=== PATIENT | male | born 1990 | race Two or more races ===

== ENCOUNTER 2016-09-18 | Emergency (ER) | payer OTHER | END 2016-09-18 09:42 | disposition home or self-care (01) ==

== ENCOUNTER 2018-06-09 12:53 | Emergency (ER) | payer SELFPAY ==
--- NOTE | 2018-06-09 13:12 | ED Physician Documentation ---
PD HPI CHEST PAIN - Stated complaint Stated Complaint: CP/DIZZY - Chief complaint Chief Complaint: Cardiac - History obtained from History obtained from: Patient - History of Present Illness Timing - onset: Other (For the last week or so he has had episodic sharp left- sided nonradiating chest pain. It is worse after but not during workouts. There is no associated nausea or shortness of breath. He has had some dizziness with it, but no syncope. He has a remote history of mitral valve prolapse but no other heart conditions. No recent travel, no cough, no pedal edema or calf pain.) Review of Systems Constitutional: denies: Fever, Chills Cardiac: denies: Palpitations Respiratory: denies: Dyspnea, Cough GI: denies: Abdominal Pain, Nausea, Vomiting PD PAST MEDICAL HISTORY - Past Medical History HEENT: None - Past Surgical History Past Surgical History: No - Present Medications Home Medications: Ambulatory Orders Medication Instructions Recorded Confirmed Colchicine [Colcrys] 0.6 mg PO BID #180 tablet 06/09/18 Ibuprofen [Motrin] 800 mg PO Q8H PRN #30 tablet 06/09/18 - Allergies Allergies/Adverse Reactions: Allergies Allergy/AdvReac Type Severity Reaction Status Date / Time No Known Drug Allergies Allergy Verified 06/09/18 13:02 - Social History Does the pt smoke?: Yes Smoking Status: Current some day smoker Does the pt drink ETOH?: Yes Does the pt have substance abuse?: No - Immunizations Immunizations are current?: Yes - POLST Patient has POLST: No PD ED PE NORMAL - Vitals Vital signs reviewed: Yes - General General: Alert and oriented X 3, No acute distress - HEENT HEENT: PERRL, Pharynx benign - Neck Neck: Supple, no meningeal sign, No bony TTP, No adenopathy - Cardiac Cardiac: RRR, Other (There is a pericardial friction rub heard best at the left sternal border) - Respiratory Respiratory: No respiratory distress, Clear bilaterally - Abdomen Abdomen: Non tender - Extremities Extremities: No edema, No calf tenderness / cord - Neuro Neuro: Alert and oriented X 3, Normal speech Results - Vitals Vitals: Vital Signs - 24 hr 06/09/18 13:00 Temperature 37 C Heart Rate 71 Respiratory 18 Rate Blood Pressure 158/87 H O2 Saturation 100 Oxygen O2 Source Room air - EKG (time done) 1301 Rate: Rate (enter#) (66) Rhythm: NSR [place]: Normal Intervals: Normal [place] Ischemia: Other (Widespread mild ST elevation consistent with pericarditis.) Computer interpretation: Agree with computer - Labs Labs: Laboratory Tests 06/09/18 06/09/18 06/09/18 13:30 13:30 13:30 WBC 5.6 RBC 5.17 Hgb 15.9 Hct 44.0 MCV 85.1 MCH 30.6 MCHC 36.0 RDW 12.9 Plt Count 188 MPV 7.1 L Neut # (Auto) 3.3 Lymph # (Auto) 1.5 [place] # (Auto) 0.3 Eos # (Auto) 0.4 Baso # (Auto) 0.0 Absolute Nucleated RBC 0.01 Nucleated RBC % 0.1 Sodium 137 Potassium 4.4 Chloride 98 L Carbon Dioxide 31 Anion Gap 8.0 BUN 12 Creatinine 0.8 Estimated GFR (MDRD) 116 Glucose 84 Calcium 9.4 Total Bilirubin 0.7 AST 21 ALT 26 Alkaline Phosphatase 76 Troponin I < 0.04 Total Protein 7.2 Albumin 4.5 Globulin 2.7 Albumin/Globulin Ratio 1.7 Lipase 29 - Rads (name of study) 2v chest Radiology: EMP read contemporaneously (normal) PD MEDICAL DECISION MAKING - ED course ED course: 28-year-old gentleman with physical examination and EKG consistent with pericarditis. His biomarkers and x-ray are negative and he is not in extremis. - Sepsis Event Vital Signs: Vital Signs - 24 hr 06/09/18 13:00 Temperature 37 C Heart Rate 71 Respiratory 18 Rate Blood Pressure 158/87 H O2 Saturation 100 Oxygen O2 Source Room air Departure - Departure Disposition: 01 Home, Self Care Clinical Impression: Pericarditis Qualifiers: Pericarditis type: idiopathic Chronicity: acute Qualified Code(s): I30.0 - Acute nonspecific idiopathic pericarditis Condition: Good Record reviewed to determine appropriate education?: Yes Instructions: ED Chest Pain Pericarditis Prescriptions: Colchicine [Colcrys] 0.6 mg PO BID #180 tablet Ibuprofen [Motrin] 800 mg PO Q8H PRN #30 tablet PRN Reason: PAIN &/OR FEVER Comments: Call your doctor to arrange a follow-up appointment, make the next available appointment. In the interim, return anytime if worse or if new symptoms develop. Your blood pressure was elevated today on check into the emergency department. This does not mean that you have hypertension, it is a common phenomenon to come to the emergency department and have elevated blood pressure. I recommend that you see your primary care physician within the week to have it rechecked when you are feeling better.
[2018-06-09 13:38] LABS: BASOPHILS % (AUTO) 0.6 %; EOSINOPHILS # (AUTO) 0.4 10^3/uL (0.0-0.7); EOSINOPHILS % (AUTO) 6.8 %; HGB - HEMOGLOBIN 15.9 g/dL (14.0-18.0); LYMPHOCYTES # (AUTO) 1.5 10^3/uL (1.5-3.5); LYMPHOCYTES % (AUTO) 26.9 %; MEAN CORPUSCULAR HEMOGLOBIN 30.6 pg (27.0-31.0); MEAN CORPUSCULAR VOLUME 85.1 fL (80.0-94.0); MEAN PLATELET VOLUME 7.1 fL (7.4-11.4); MONOCYTES # (AUTO) 0.3 10^3/uL (0.0-1.0); MONOCYTES % (AUTO) 5.9 %; NEUTROPHILS # (AUTO) 3.3 10^3/uL (1.5-6.6); NEUTROPHILS % (AUTO) 59.8 %; PLT - PLATELET COUNT 188 10^3/uL (130-450); RED BLOOD COUNT 5.17 10^6/uL (4.70-6.10); RED CELL DISTRIBUTION WIDTH 12.9 % (12.0-15.0); WHITE BLOOD COUNT 5.6 x10^3/uL (4.8-10.8)
[2018-06-09 13:49] LABS: ALBUMIN 4.5 g/dL (3.2-5.5); ALBUMIN/GLOBULIN RATIO 1.7 (1.0-2.2); BILIRUBIN,TOTAL 0.7 mg/dL (0.2-1.0); CALCIUM 9.4 mg/dL (8.5-10.3); CREATININE 0.8 mg/dL (0.6-1.2); TOTAL PROTEIN 7.2 g/dL (6.7-8.2)
--- NOTE | 2018-06-09 14:08 | XRAY Report ---
Reason: chest pain Procedure Date: 06/09/2018 Accession Number: [id number] / [id number] Procedure: XR - Chest 2 View X-Ray CPT Code: 42605 FULL RESULT: EXAM: CHEST RADIOGRAPHY EXAM DATE: 06/09/2018 01:48 PM. CLINICAL HISTORY: Chest pain. COMPARISON: None. TECHNIQUE: 2 views. FINDINGS: Lungs/Pleura: No focal opacities evident. No pleural effusion. No pneumothorax. Normal volumes. Mediastinum: Heart and mediastinal contours are unremarkable. Other: None. IMPRESSION: No acute cardiopulmonary abnormality. RADIA
[2018-06-09 14:35] VITALS: BP 132/85
== END 2018-06-09 14:23 | disposition home or self-care (01) ==
LOC: ED 12:53
DX: I30.0 Acute nonspecific idiopathic pericarditis (principal); R03.0 Elevated blood-pressure reading, without diagnosis of hypertension; R94.31 Abnormal electrocardiogram [ECG] [EKG]; F17.200 Nicotine dependence, unspecified, uncomplicated
CPT/HCPCS: 36415; 71046; 80053; 83690; 84484; 85025; 93005; 99283

== ENCOUNTER 2018-06-13 17:18 | Emergency (ER) | payer SELFPAY ==
[2018-06-13] MEDS ORDERED: COLCHICINE 0.6 MG TABLET PO STA (17:52)
--- NOTE | 2018-06-13 17:54 | ED Physician Documentation ---
History of Present Illness - Stated complaint Stated Complaint: CP/HEART PALP/DIZZY - Chief complaint Chief Complaint: Cardiac - History obtained from History obtained from: Patient - History of Present Illness Timing: How many weeks ago (1) Pain level max: 4 Pain level now: 3 - Additonal information Additional information: Patient is a 28-year-old male who presents to the emergency department with sharp intermittent chest pain ongoing for the past week. States it is better with sitting up and worse with lying down. Seen here a few days ago and diagnosed with pericarditis. Has not filled his medications were taken them yet. No Fevers. No shortness of breath. No dyspnea Review of Systems Constitutional: denies: Fever, Chills Respiratory: denies: Cough GI: denies: Abdominal Pain, Nausea, Vomiting, Diarrhea Skin: denies: Rash Musculoskeletal: denies: Neck pain, Back pain PD PAST MEDICAL HISTORY - Past Medical History Past Medical History: Yes Cardiovascular: Valve disorder HEENT: None - Past Surgical History Past Surgical History: No - Present Medications Home Medications: Ambulatory Orders Medication Instructions Recorded Confirmed Colchicine [Colcrys] 0.6 mg PO BID #180 tablet 06/09/18 Ibuprofen [Motrin] 800 mg PO Q8H PRN #30 tablet 06/09/18 - Allergies Allergies/Adverse Reactions: Allergies Allergy/AdvReac Type Severity Reaction Status Date / Time No Known Drug Allergies Allergy Verified 06/09/18 13:02 - Social History Does the pt smoke?: Yes Smoking Status: Current every day smoker Does the pt drink ETOH?: Yes Does the pt have substance abuse?: No - Immunizations Immunizations are current?: Yes - POLST Patient has POLST: No PD ED PE NORMAL - Vitals Vital signs reviewed: Yes - General General: Alert and oriented X 3, No acute distress, Well developed/nourished - HEENT HEENT: PERRL, Moist mucous membranes - Neck Neck: Supple, no meningeal sign - Cardiac Cardiac: RRR, Strong equal pulses - Respiratory Respiratory: No respiratory distress, Clear bilaterally - Abdomen Abdomen: Soft, Non tender, Non distended - Derm Derm: Warm and dry - Extremities Extremities: No edema, No calf tenderness / cord - Neuro Neuro: Alert and oriented X 3 - Psych Psych: Normal mood, Normal affect Results - Vitals Vitals: Vital Signs - 24 hr 06/13/18 17:30 Temperature 36.6 C Heart Rate 69 Respiratory 17 Rate Blood Pressure 148/80 H O2 Saturation 100 Oxygen O2 Source Room air - EKG (time done) 1724 Rate: Rate (enter#) (61) Rhythm: NSR [place]: Normal Intervals: Normal [place] QRS: Normal Ischemia: Other (diffuse ST elev c/w pericarditis) Computer interpretation: Agree with computer PD MEDICAL DECISION MAKING - ED course Complexity details: reviewed old records, reviewed results, re-evaluated patient, considered differential, d/w patient ED course: Patient is a 28-year-old male who was recently diagnosed with pericarditis. Has not started any of his medications over the past 4 days. Is continuing to have symptoms. Recommended that he start his medications and his symptoms should improve. Does not have any evidence of significant pericardial effusion. He is well-appearing, nontoxic. Afebrile. No hypoxia. No tachycardia or respiratory distress. Patient counseled regarding signs and symptoms for which I believe and urgent re-evaluation would be necessary. Patient with good understanding of and agreement to plan and is comfortable going home at this time This document was made in part using voice recognition software. While efforts are made to proofread this document, sound alike and grammatical errors may occur. - Sepsis Event Vital Signs: Vital Signs - 24 hr 06/13/18 17:30 Temperature 36.6 C Heart Rate 69 Respiratory 17 Rate Blood Pressure 148/80 H O2 Saturation 100 Oxygen O2 Source Room air Departure - Departure Disposition: 01 Home, Self Care Clinical Impression: Pericarditis Qualifiers: Pericarditis type: unspecified type Chronicity: acute Qualified Code(s): I30.9 - Acute pericarditis, unspecified Condition: Good Instructions: ED Chest Pain Pericarditis Follow-Up: your,doctor in 1 week [Other] Comments: Please fill the medications were prescribed at your last emergency department visit and to take them as prescribed. Return if you worsen Discharge Date/Time: 06/13/18 18:04
[2018-06-13 18:03] VITALS: BP 131/79
== END 2018-06-13 18:04 | disposition home or self-care (01) ==
LOC: ED 17:18
DX: I30.9 Acute pericarditis, unspecified (principal); R94.31 Abnormal electrocardiogram [ECG] [EKG]; F17.200 Nicotine dependence, unspecified, uncomplicated
CPT/HCPCS: 93005; 99283; A9270

== ENCOUNTER 2019-01-05 21:42 | Emergency (ER) | payer SELFPAY ==
[2019-01-05 21:49] VITALS: BP 141/98
--- NOTE | 2019-01-05 22:05 | ED Physician Documentation ---
PD HPI HEAD INJURY - Stated complaint Stated Complaint: HEAD LAC - Chief complaint Chief Complaint: Laceration - History obtained from History obtained from: Patient - History of Present Illness Mechanism of head injury: Blow (He was running down the stairs at home and kind of jumped and hit the ceiling. He has a laceration on the top of the scalp. No loss of consciousness or headache. He had a few drinks tonight but does not feel intoxicated.) Review of Systems Constitutional: reports: Reviewed and negative Nose: reports: Reviewed and negative Cardiac: reports: Reviewed and negative PD PAST MEDICAL HISTORY - Past Medical History Cardiovascular: Valve disorder HEENT: None - Past Surgical History Past Surgical History: No - Present Medications Home Medications: Ambulatory Orders Medication Instructions Recorded Confirmed Colchicine [Colcrys] 0.6 mg PO BID #180 tablet 06/09/18 Ibuprofen [Motrin] 800 mg PO Q8H PRN #30 tablet 06/09/18 - Allergies Allergies/Adverse Reactions: Allergies Allergy/AdvReac Type Severity Reaction Status Date / Time No Known Drug Allergies Allergy Verified 01/05/19 21:49 - Social History Does the pt smoke?: Yes Smoking Status: Current every day smoker Does the pt drink ETOH?: Yes Does the pt have substance abuse?: No - Immunizations Immunizations are current?: Yes - POLST Patient has POLST: No PD ED PE NORMAL - Vitals Vital signs reviewed: Yes - General General: Alert and oriented X 3, No acute distress - HEENT HEENT: PERRL, EOMI, Other (There is a horizontal 2 cm shallow scalp laceration a nterior to the vertex, about fpc between the hairline and the vertex.) - Neck Neck: Supple, no meningeal sign, No bony TTP - Neuro Neuro: Alert and oriented X 3, career advisor 2-12 intact Eye Opening: Spontaneous Motor: Obeys Commands Verbal: Oriented GCS Score: 15 - Psych Psych: Normal mood, Normal affect Results - Vitals Vitals: Vital Signs - 24 hr 01/05/19 21:46 Temperature 37.2 C Heart Rate 97 Respiratory 16 Rate Blood Pressure 141/98 H O2 Saturation 98 Oxygen O2 Source Room air Procedures - Laceration (location) scalp Length in cm: 2 Wound type: Linear Anesthesia: Lidocaine 1% with epi Wound Preparation: Irrigated copiously NS Skin layer closure: Crowell (4) Other: Tetanus UTD Complexity: Simple Departure - Departure Disposition: Home, Self Care Clinical Impression: Scalp laceration Qualifiers: Encounter type: initial encounter Qualified Code(s): S01.01XA - Laceration without foreign body of scalp, initial encounter Condition: Good Record reviewed to determine appropriate education?: Yes Instructions: ED Head Injury Closed, ED Laceration Scalp Stitch Or Stap Comments: As discussed you can wash your hair as you would normal, but be careful of the leonardo, especially when brushing your hair. They should come out in 7 to 10 days, you can follow-up with your primary care physician for this. Your blood pressure was elevated today on check into the emergency department. This does not mean that you have hypertension, it is a common phenomenon to come to the emergency department and have elevated blood pressure. I recommend that you see your primary care physician within the week to have it rechecked when you are feeling better.
== END 2019-01-05 22:14 | disposition home or self-care (01) ==
LOC: ED 21:42
DX: S01.01XA Laceration without foreign body of scalp, initial encounter (principal); W22.09XA Striking against other stationary object, initial encounter; Y93.39 Activity, other involving climbing, rappelling and jumping off; Y92.009 Unspecified place in unspecified non-institutional (private) residence as the place of occurrence of the external cause; R03.0 Elevated blood-pressure reading, without diagnosis of hypertension; F17.200 Nicotine dependence, unspecified, uncomplicated
CPT/HCPCS: 12001; 99282; 99283

== ENCOUNTER 2019-01-18 20:03 | Emergency (ER) | payer SELFPAY ==
[2019-01-18 20:09] VITALS: BP 142/66
--- NOTE | 2019-01-18 20:10 | ED Physician Documentation ---
PD HPI WOUND RECHECK - Stated complaint Stated Complaint: SUTURE REMOVAL - Chief complaint Chief Complaint: Wound - Histroy obtained from History obtained from: Patient - History of Present Illness Location: Scalp (Little over 10 days out from a scalp laceration, no problems. Here for staple removal.) PD PAST MEDICAL HISTORY - Past Medical History Cardiovascular: Valve disorder HEENT: None - Past Surgical History Past Surgical History: No - Present Medications Home Medications: Ambulatory Orders Medication Instructions Recorded Confirmed Colchicine [Colcrys] 0.6 mg PO BID #180 tablet 06/09/18 Ibuprofen [Motrin] 800 mg PO Q8H PRN #30 tablet 06/09/18 - Allergies Allergies/Adverse Reactions: Allergies Allergy/AdvReac Type Severity Reaction Status Date / Time No Known Drug Allergies Allergy Verified 01/18/19 20:09 - Social History Does the pt smoke?: Yes Smoking Status: Current every day smoker Does the pt drink ETOH?: Yes Does the pt have substance abuse?: No - Immunizations Immunizations are current?: Yes - POLST Patient has POLST: No PD ED PE NORMAL - Vitals Vital signs reviewed: Yes - General General: Alert and oriented X 3, No acute distress - HEENT HEENT: Other (Healing anterior mid scalp laceration with [address], removed during exam without issue, no signs of infection.) - Neck Neck: Supple, no meningeal sign, No bony TTP - Neuro Neuro: Alert and oriented X 3, Normal speech Results - Vitals Vitals: Vital Signs - 24 hr 01/18/19 20:08 Temperature 36.7 C Heart Rate 92 Respiratory 18 Rate Blood Pressure 142/66 H O2 Saturation 96 Oxygen O2 Source Room air Departure - Departure Disposition: Home, Self Care Clinical Impression: Removal of staple Condition: Good
== END 2019-01-18 20:11 | disposition home or self-care (01) ==
LOC: ED 20:03
DX: Z48.02 Encounter for removal of sutures (principal); S01.01XD Laceration without foreign body of scalp, subsequent encounter; F17.200 Nicotine dependence, unspecified, uncomplicated
CPT/HCPCS: 99282

== ENCOUNTER 2019-05-28 13:17 | Emergency (ER) | payer SELFPAY ==
--- NOTE | 2019-05-28 14:13 | ED Physician Documentation ---
PD HPI CHEST PAIN - Stated complaint Stated Complaint: SOA - Chief complaint Chief Complaint: Resp - History obtained from History obtained from: Patient - History of Present Illness Timing - onset: Other (29-year-old gentleman had a bout of pericarditis about a year ago. Since then he has frequent episodes of chest discomfort, he gets short of breath with exertion and feels like he has trouble exhaling. He saw a risk management intern in follow-up, no specific diagnosis was given. Over the last few months he also notices nasal congestion and itching as well. No pedal edema. No calf pain.) Review of Systems Constitutional: denies: Fever, Chills Nose: reports: Rhinorrhea / runny nose, Congestion Throat: denies: Sore throat Cardiac: denies: Chest pain / pressure, Palpitations Respiratory: reports: Dyspnea. denies: Cough GI: denies: Abdominal Pain PD PAST MEDICAL HISTORY - Past Medical History Cardiovascular: Valve disorder HEENT: None - Past Surgical History Past Surgical History: No - Present Medications Home Medications: Ambulatory Orders Medication Instructions Recorded Confirmed Colchicine [Colcrys] 0.6 mg PO BID #180 tablet 06/09/18 Ibuprofen [Motrin] 800 mg PO Q8H PRN #30 tablet 06/09/18 Cetirizine [ZyrTEC] 10 mg PO DAILY #90 tablet 05/28/19 Mometasone Furoate [Nasonex] 1 spray NS BID #1 spray.pump 05/28/19 - Allergies Allergies/Adverse Reactions: Allergies Allergy/AdvReac Type Severity Reaction Status Date / Time No Known Drug Allergies Allergy Verified 05/28/19 13:24 - Social History Does the pt smoke?: Yes Smoking Status: Current every day smoker Does the pt drink ETOH?: Yes Does the pt have substance abuse?: No - Immunizations Immunizations are current?: Yes - POLST Patient has POLST: No PD ED PE NORMAL - Vitals Vital signs reviewed: Yes - General General: Alert and oriented X 3, No acute distress - HEENT HEENT: PERRL, Ears normal, Moist mucous membranes - Neck Neck: Supple, no meningeal sign, No bony TTP - Cardiac Cardiac: RRR, No murmur, No gallop, No rub, Strong equal pulses - Respiratory Respiratory: No respiratory distress, Clear bilaterally - Abdomen Abdomen: Non tender - Extremities Extremities: No edema, No calf tenderness / cord - Neuro Neuro: Alert and oriented X 3, Normal speech Results - Vitals Vitals: Vital Signs - 24 hr 05/28/19 05/28/19 13:22 14:45 Temperature 36.3 C L Heart Rate 80 79 Respiratory 19 16 Rate Blood Pressure 156/94 H 137/90 H O2 Saturation 98 98 Oxygen O2 Source Room air - EKG (time done) 1447 Rate: Rate (enter#) (72) Rhythm: NSR [place]: Normal Intervals: Normal [place] QRS: Normal Ischemia: Other (Unchanged ST elevation from last year questioning the original diagnosis of pericarditis.) Compare to prior EKG: Unchanged from prior EKG - Labs Labs: Laboratory Tests 05/28/19 05/28/19 05/28/19 14:22 14:22 14:22 WBC 6.5 RBC 5.30 Hgb 16.2 Hct 45.5 MCV 85.8 MCH 30.6 MCHC 35.6 RDW 12.6 Plt Count 218 MPV 8.9 Neut # (Auto) 4.3 Lymph # (Auto) 1.3 L [place] # (Auto) 0.4 Eos # (Auto) 0.4 Baso # (Auto) 0.1 Absolute Nucleated RBC 0.00 Nucleated RBC % 0.0 ESR 1 Sodium 140 Potassium 3.9 Chloride 99 L Carbon Dioxide 31 Anion Gap 10.0 BUN 18 Creatinine 0.9 Estimated GFR (MDRD) 100 Glucose 99 Calcium 9.3 Total Bilirubin 0.7 AST 18 ALT 18 Alkaline Phosphatase 76 Total Protein 7.8 Albumin 4.8 Globulin 3.0 Albumin/Globulin Ratio 1.6 Lipase 33 PD MEDICAL DECISION MAKING - ED course ED course: 29-year-old gentleman whose had some subacute to chronic breathing difficulties since a diagnosis of pericarditis last year. Work-up in the emergency department is negative but he does need an echocardiogram and follow-up. There is some elements of allergic rhinitis this summer with this as well. Departure - Departure Disposition: 01 Home, Self Care Clinical Impression: Dyspnea Qualifiers: Dyspnea type: shortness of breath Qualified Code(s): R06.02 - Shortness of breath; R06.00 - Dyspnea, unspecified; R06.01 - Orthopnea Pericarditis Qualifiers: Pericarditis type: idiopathic Chronicity: chronic Chronic pericarditis complication: unspecified complication status Qualified Code(s): I31.9 - Disease of pericardium, unspecified Condition: Good Record reviewed to determine appropriate education?: Yes Instructions: ED Dyspnea Shortness of Breath Prescriptions: Cetirizine [ZyrTEC] 10 mg PO DAILY #90 tablet Mometasone Furoate [Nasonex] 1 spray NS BID #1 spray.pump Comments: Your EKG here is unchanged from last year, your chest x-ray is normal. Your labs are normal. The one test that would be useful, but I cannot get this done for you today would be an echocardiogram. Talk with your doctor about this. Return for new worsening symptoms.
--- NOTE | 2019-05-28 14:29 | XRAY Report ---
Reason: dyspnea Procedure Date: 05/28/2019 Accession Number: [id number] / [id number] Procedure: XR - Chest 2 View X-Ray CPT Code: 39044 FULL RESULT: EXAM: CHEST RADIOGRAPHY EXAM DATE: 05/28/2019 02:16 PM. CLINICAL HISTORY: Dyspnea. COMPARISON: CHEST 2 VIEW 06/09/2018 1:42 PM. TECHNIQUE: 2 views. FINDINGS: Lungs/Pleura: No focal opacities evident. No pleural effusion. No pneumothorax. Normal volumes. Mediastinum: Heart and mediastinal contours are unremarkable. Other: None. IMPRESSION: No acute cardiopulmonary abnormality. RADIA
[2019-05-28 14:30] LABS: BASOPHILS # (AUTO) 0.1 10^3/uL (0.0-0.1); BASOPHILS % (AUTO) 0.8 %; EOSINOPHILS # (AUTO) 0.4 10^3/uL (0.0-0.7); EOSINOPHILS % (AUTO) 6.3 %; HGB - HEMOGLOBIN 16.2 g/dL (14.0-18.0); LYMPHOCYTES # (AUTO) 1.3 10^3/uL (1.5-3.5); LYMPHOCYTES % (AUTO) 20.4 %; MEAN CORPUSCULAR HEMOGLOBIN 30.6 pg (27.0-31.0); MEAN CORPUSCULAR HGB CONC 35.6 g/dL (32.0-36.0); MEAN CORPUSCULAR VOLUME 85.8 fL (80.0-94.0); MEAN PLATELET VOLUME 8.9 fL (7.4-11.4); MONOCYTES # (AUTO) 0.4 10^3/uL (0.0-1.0); MONOCYTES % (AUTO) 6.2 %; NEUTROPHILS # (AUTO) 4.3 10^3/uL (1.5-6.6); PLT - PLATELET COUNT 218 10^3/uL (130-450); RED CELL DISTRIBUTION WIDTH 12.6 % (12.0-15.0); WHITE BLOOD COUNT 6.5 x10^3/uL (4.8-10.8)
[2019-05-28 14:46] LABS: ALBUMIN 4.8 g/dL (3.2-5.5); ALBUMIN/GLOBULIN RATIO 1.6 (1.0-2.2); BILIRUBIN,TOTAL 0.7 mg/dL (0.2-1.0); CALCIUM 9.3 mg/dL (8.5-10.3); CREATININE 0.9 mg/dL (0.6-1.2); TOTAL PROTEIN 7.8 g/dL (6.7-8.2)
[2019-05-28 14:50] VITALS: BP 137/90
== END 2019-05-28 15:11 | disposition home or self-care (01) ==
LOC: ED 13:17
DX: I31.9 Disease of pericardium, unspecified (principal); R06.01 Orthopnea; R06.02 Shortness of breath; J30.9 Allergic rhinitis, unspecified; F17.200 Nicotine dependence, unspecified, uncomplicated
CPT/HCPCS: 36415; 71046; 80053; 83690; 85025; 85651; 93005; 99283; 99284

== ENCOUNTER 2019-07-10 23:06 | Emergency (ER) | payer SELFPAY ==
--- NOTE | 2019-07-10 23:51 | XRAY Report ---
Reason: Trauma Procedure Date: 07/10/2019 Accession Number: [id number] / [id number] Procedure: XR - Knee 4 View LT CPT Code: Final Report FULL RESULT: EXAM: LEFT KNEE RADIOGRAPHY EXAM DATE: 07/10/2019 11:37 PM. CLINICAL HISTORY: Trauma. COMPARISON: None. TECHNIQUE: 3 views. FINDINGS: Bones: Normal. No fractures or bone lesions. Joints: Normal. No effusion. No subluxations. Soft Tissues: Normal. No soft tissue swelling. IMPRESSION: Normal knee radiography. RADIA
--- NOTE | 2019-07-11 01:11 | ED Physician Documentation ---
PD HPI LOWER EXT INJURY - Stated complaint Stated Complaint: FOOT PX - Chief complaint Chief Complaint: Trauma Ext - History obtained from History obtained from: Patient - History of Present Illness PD HPI LOW EXT INJURY LOCATION: Left, Knee Type of injury: Twist Timing - onset: Yesterday Timing - duration: Hours Timing - details: Abrupt onset Pain level now: 4 Improved by: Rest Worsened by: Moving, Palpating Associated symptoms: Swelling Recently seen: Not recently seen - Additional information Additional information: c/o left knee pain and swelling since injury yesterday. Patient was practicing martial arts with sparring partner and his leg was forced into hyperflexion and twisted before he could signal to sparring partner ("tap out", per patient). He has had gradually worsening left knee pain and swelling since that time. He is able to partially weight-bear Review of Systems Musculoskeletal: reports: Joint pain, Joint swelling, Pain with weight bearing Neurologic: denies: Focal weakness, Numbness PD PAST MEDICAL HISTORY - Past Medical History Past Medical History: Yes Cardiovascular: Valve disorder Neuro: None Endocrine/Autoimmune: None GI: None : None HEENT: None Psych: None Musculoskeletal: None Derm: None - Past Surgical History Past Surgical History: No - Present Medications Home Medications: Ambulatory Orders Medication Instructions Recorded Confirmed Ibuprofen [Motrin] 800 mg PO Q8H PRN #30 tablet 06/09/18 07/10/19 Cetirizine [ZyrTEC] 10 mg PO DAILY #90 tablet 05/28/19 07/10/19 Mometasone Furoate [Nasonex] 1 spray NS BID #1 spray.pump 05/28/19 07/10/19 - Allergies Allergies/Adverse Reactions: Allergies Allergy/AdvReac Type Severity Reaction Status Date / Time No Known Drug Allergies Allergy Verified 07/10/19 23:20 - Social History Does the pt smoke?: Yes Smoking Status: Current every day smoker Does the pt drink ETOH?: No Does the pt have substance abuse?: No - Immunizations Immunizations are current?: Yes - POLST Patient has POLST: No PD ED PE NORMAL - Vitals Vital signs reviewed: Yes - General General: Alert and oriented X 3, No acute distress, Well developed/nourished - Derm Derm: Normal color, Warm and dry - Extremities Extremities: Other (left knee: moderate swelling, mild tenderness along medial aspect) - Neuro Neuro: No motor deficit, No sensory deficit Results - Vitals Vitals: Oxygen O2 Source Room air - Rads (name of study) left knee xrays Radiology: Prelim report reviewed, See rad report PD MEDICAL DECISION MAKING - ED course Complexity details: reviewed results, re-evaluated patient, considered differential, d/w patient Departure - Departure Disposition: 01 Home, Self Care Clinical Impression: Knee sprain Condition: Good Instructions: ED Crutch Walking, ED Immobilizer Knee, ED Sprain Knee Follow-Up: Azeem Freed MD [Provider Admit Priv/Credential] - (3-5 days) Discharge Date/Time: 07/11/19 01:49
[2019-07-11 01:37] VITALS: BP 115/73
== END 2019-07-11 01:49 | disposition home or self-care (01) ==
LOC: ED 23:06
DX: S83.92XA Sprain of unspecified site of left knee, initial encounter (principal); X50.1XXA Overexertion from prolonged static or awkward postures, initial encounter; Y93.75 Activity, martial arts; F17.200 Nicotine dependence, unspecified, uncomplicated
CPT/HCPCS: 99282; 99283

== ENCOUNTER 2019-09-27 05:53 | Emergency (ER) | payer SELFPAY ==
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
[2019-09-27 09:27] VITALS: BP 120/62
== END 2019-09-27 09:32 | disposition home or self-care (01) ==
LOC: EEVIPCON 05:53 → ED 05:53
DX: S02.2XXA Fracture of nasal bones, initial encounter for closed fracture (principal); S05.11XA Contusion of eyeball and orbital tissues, right eye, initial encounter; S00.431A Contusion of right ear, initial encounter; S00.211A Abrasion of right eyelid and periocular area, initial encounter; S00.81XA Abrasion of other part of head, initial encounter; S10.81XA Abrasion of other specified part of neck, initial encounter; Y04.2XXA Assault by strike against or bumped into by another person, initial encounter; F17.200 Nicotine dependence, unspecified, uncomplicated
CPT/HCPCS: 70480; 99284